=== PATIENT | male | born 1960 | race Caucasian/White ===

== ENCOUNTER 2024-03-12 06:58 | Day surgery (SDC) | payer OTHER, SELFPAY ==
[2024-03-12 07:15] VITALS: BP 142/84; PULSE 59; RESP 18; TEMP 36.7; O2SAT 97; BMI 32.5
[2024-03-12] MEDS: sodium chloride 0.9% 1,000 ML 30 ML IV (07:25)
[2024-03-12 07:48] LABS: Glucose Point of Care 116 mg/dL (70-110)
--- NOTE | 2024-03-12 08:04 | ANES.PREANE2 ---
Pre-Anesthetic Assessment Height/Weight: Height 1.75 m Weight 99.79 kg Temp Pulse Resp BP Pulse Ox O2 Del Method 98.1 F 59 L 18 142/84 97 Room Air 03/12/24 07:15 03/12/24 07:15 03/12/24 07:15 03/12/24 07:15 03/12/24 07:15 03/12/24 07:15 Operation Date: 03/12/24 08:15 Proposed Procedures p Colonoscopy 37126, G0105, Z12.11(Not Applicable) - Jessee Santos, DO Was Beta Shemar taken within 24 hours: N/A Was Clonidine taken within 24 hours: N/A Last intake: Intake Last Liquid Date 03/11/24 Last Liquid Time 12:00 Last Solid Date 03/10/24 Last Solid Time 20:00 Social No alcohol and No tobacco Exam alert, oriented x 3, clear to auscultation bilaterally and regular rate & rhythm Airway Submandibular: within normal limits Cervical ROM: within normal limits Mallampati: Class II History/ROS No significant history except as noted and No significant complaints Pulmonary None reported CV/HEM Hypertension None reported Hepatic None reported GI None reported Metabolic Diabetes Mellitus and Hyperlipidemia [facility] None reported Neuropsych None reported Anesthetic Plan ASA status: 2 Anesthesia: Anesthesia Evaluation and MAC Risk of > 500 ml blood loss (7ml/kg in children): Yes, adequate IV access and fluids planned Medications/Allergies Home Medications Medication Instructions Recorded Confirmed Last Taken Type aspirin 81 mg tablet,delayed 81 mg PO DAILY 10/03/23 03/12/24 03/09/24 History release (Adult Low Dose Aspirin) cholecalciferol (vitamin D3) 125 125 mcg PO DAILY 10/03/23 03/12/24 03/09/24 History mcg (5,000 unit) capsule sildenafil 100 mg tablet (Viagra) 100 mg PO DAILY PRN sexual 10/03/23 03/12/24 Unknown Rx activity #20 tabs tizanidine 4 mg tablet 4 mg PO BID PRN muscle spasticity 02/06/24 03/12/24 Unknown Rx #45 tabs atorvastatin 20 mg tablet 20 mg PO DAILY #90 tabs 02/21/24 03/12/24 03/09/24 Rx liraglutide 0.6 mg/0.1 mL (18 mg/3 See Rx Instructions SUBCUT 02/21/24 03/12/24 Unknown Rx mL) subcutaneous pen injector .COMPLEX #6 mL (Victoza 2-Todd) valsartan 160 mg tablet 160 mg PO BID #60 tabs 02/21/24 03/12/24 03/11/24 Rx gabapentin 100 mg capsule 200 mg PO BEDTIME PRN Pain 03/10/24 03/12/24 Unknown History Allergies Allergy/AdvReac Type Severity Reaction Status Date / Time No Known Allergies Allergy Verified 03/10/24 10:38 [facility] Anesthesia Medical History Vitamin D deficiency Erectile dysfunction Hyperlipidemia Hypertension Social History Smoking and tobacco/nicotine status: former use of tobacco/nicotine Alcohol intake: never Substance/Drug Use: current Data Anesthesia Cardiac Studies: No Data to Display
--- NOTE | 2024-03-12 08:35 | PM.HP ---
Providers/Chief Complaint Primary Care Provider: Daphney Huynh APN Chief Complaint: Z12.11 History of Present Illness Aminta Hernandez is a 63 year old male Review of Systems General: Reports: 10 or more systems reviewed and unremarkable except in HPI and below Medications/Allergies Home Medications Medication Instructions Recorded Confirmed Last Taken Type aspirin 81 mg tablet,delayed 81 mg PO DAILY 10/03/23 03/12/24 03/09/24 History release (Adult Low Dose Aspirin) cholecalciferol (vitamin D3) 125 125 mcg PO DAILY 10/03/23 03/12/24 03/09/24 History mcg (5,000 unit) capsule sildenafil 100 mg tablet (Viagra) 100 mg PO DAILY PRN sexual 10/03/23 03/12/24 Unknown Rx activity #20 tabs tizanidine 4 mg tablet 4 mg PO BID PRN muscle spasticity 02/06/24 03/12/24 Unknown Rx #45 tabs atorvastatin 20 mg tablet 20 mg PO DAILY #90 tabs 02/21/24 03/12/24 03/09/24 Rx liraglutide 0.6 mg/0.1 mL (18 mg/3 See Rx Instructions SUBCUT 02/21/24 03/12/24 Unknown Rx mL) subcutaneous pen injector .COMPLEX #6 mL (Victoza 2-Todd) valsartan 160 mg tablet 160 mg PO BID #60 tabs 02/21/24 03/12/24 03/11/24 Rx gabapentin 100 mg capsule 200 mg PO BEDTIME PRN Pain 03/10/24 03/12/24 Unknown History Allergies Allergy/AdvReac Type Severity Reaction Status Date / Time No Known Allergies Allergy Verified 03/10/24 10:38 PFSH Acute PFSH: Medical History Vitamin D deficiency Erectile dysfunction Hyperlipidemia Hypertension Social History Smoking and tobacco/nicotine status: former use of tobacco/nicotine Alcohol intake: never Substance/Drug Use: current Vitals/I&O/Wt Last Vital Signs Temp 98.1 F 03/12/24 07:15 Pulse 59 L 03/12/24 07:15 Resp 18 03/12/24 07:15 BP 142/84 03/12/24 07:15 Pulse Ox 97 03/12/24 07:15 O2 Del Method Room Air 03/12/24 07:15 Weight last 48 hrs Weight 220 lb A&P Assessment and plan (1) History of colon polyps: Plan Screening colonoscopy Attestations Medical Necessity Statement*: Home Coding Level of Care Code Acute Code for Chg Fwd Diagnoses History of colon polyps Z86.010
[2024-03-12 08:53] VITALS: BP 89/59; PULSE 74; RESP 14; TEMP 36.5; O2SAT 92
[2024-03-12 09:01] VITALS: BP 87/51; PULSE 72; RESP 14; O2SAT 92
[2024-03-12 09:20] VITALS: BP 116/70; PULSE 71; RESP 18; O2SAT 95
--- NOTE | 2024-03-12 09:30 | ANE.PACU2 ---
Inpatient post-anesthesia follow up: Airway intact: Yes Vital signs: Temperature 97.7 F Pulse Rate 71 Respiratory Rate 18 Blood Pressure 116/70 Pulse Oximetry 95 Oxygen Delivery Me thod Room Air Oxygen Flow Rate Fraction of Inspir ed Oxygen Hydration adequate: Yes Nausea and vomiting: No Pain level: 1 Mental status: Baseline
== END 2024-03-12 09:34 | disposition home or self-care (01) ==
PROVIDERS: PCP Nurse Practitioner; Visit Provider Surgery
PROC: 0DJD8ZZ Inspection of Lower Intestinal Tract, Via Natural or Artificial Opening Endoscopic (ICD-10-PCS; CPT 45378; principal; 2024-03-12 08:15)
DX: Z12.11 Encounter for screening for malignant neoplasm of colon (principal); Z86.010 Personal history of colon polyps; D12.3 Benign neoplasm of transverse colon; K64.8 Other hemorrhoids; Z79.82 Long term (current) use of aspirin; E78.5 Hyperlipidemia, unspecified; I10 Essential (primary) hypertension; Z87.891 Personal history of nicotine dependence; E11.9 Type 2 diabetes mellitus without complications
CPT/HCPCS: 36416; 45385; 82962; 88305; J2704; J3490; J7030

== ENCOUNTER → 2024-04-16 10:27 | Outpatient (BNVA) | payer OTHER, SELFPAY | PROVIDERS: PCP Nurse Practitioner; Referring Provider Nurse Practitioner; Visit Provider Specialist | DX: G56.01 Carpal tunnel syndrome, right upper limb (principal) | CPT/HCPCS: 36415; 73130; 80053; 85025 ==

== ENCOUNTER → 2024-04-18 11:11 | Outpatient (BNVA) | payer OTHER, SELFPAY | PROVIDERS: PCP Nurse Practitioner; Visit Provider Family Medicine | DX: Z01.818 Encounter for other preprocedural examination (principal) | CPT/HCPCS: 93005 ==

== ENCOUNTER 2024-04-22 08:36 | Day surgery (SDC) | payer OTHER, SELFPAY ==
[2024-04-22] VITALS (8 sets, daily range): BP systolic 146–157; BP diastolic 71–81; PULSE 56–87; RESP 15–18; TEMP 36.3–36.4; O2SAT 96–99; BMI 30.2
[2024-04-22] MEDS: acetaminophen 1,000 MG/100 ML PIGGYBACK 400 MG IV (09:13)
[2024-04-22 09:15] LABS: Glucose Point of Care 99 mg/dL (70-110)
[2024-04-22] MEDS: gabapentin 300 mg Capsule PO (09:18)
[2024-04-22] MEDS: CELEcoxib 200 mg Capsule 400 MG PO (09:18)
[2024-04-22] MEDS: sodium chloride 0.9% 1,000 ML 30 ML IV (09:18)
--- NOTE | 2024-04-22 09:20 | ANES.PREANE2 ---
Pre-Anesthetic Assessment Height/Weight: Height 1.75 m Temp Pulse Resp BP Pulse Ox O2 Del Method 97.4 F L 56 L 18 146/77 98 Room Air 04/22/24 08:50 04/22/24 08:50 04/22/24 08:50 04/22/24 08:50 04/22/24 08:50 04/22/24 09:00 Operation Date: 04/22/24 10:35 Proposed Procedures p Carpal Tunnel Release(Right) - Natali Vargas MD Familial anesthetic complications: Drowsy til 8 pm after his colonoscopy here, received propofol, lidocaine and glyco only per review of anesthesia record Was Beta Shemar taken within 24 hours: N/A Was Clonidine taken within 24 hours: N/A Last intake: Intake Last Liquid Date 04/21/24 Last Liquid Time 22:00 Last Solid Date 04/21/24 Last Solid Time 19:00 Social No alcohol and No tobacco Exam alert, oriented x 3, clear to auscultation bilaterally and regular rate & rhythm Airway Mallampati: Class I Dentition: other (missing) CV/HEM Hypertension Metabolic Diabetes Mellitus and Hyperlipidemia Anesthetic Plan ASA status: 3 Anesthesia: General Risk of > 500 ml blood loss (7ml/kg in children): No Medications/Allergies Home Medications Medication Instructions Recorded Confirmed Last Taken Type aspirin 81 mg tablet,delayed 81 mg PO DAILY 10/03/23 04/21/24 04/18/24 History release (Adult Low Dose Aspirin) cholecalciferol (vitamin D3) 125 125 mcg PO DAILY 10/03/23 04/21/24 04/18/24 History mcg (5,000 unit) capsule sildenafil 100 mg tablet (Viagra) 100 mg PO DAILY PRN sexual 10/03/23 04/21/24 Unknown Rx activity #20 tabs tizanidine 4 mg tablet 4 mg PO BID PRN muscle spasticity 02/06/24 04/21/24 Unknown Rx #45 tabs atorvastatin 20 mg tablet 20 mg PO DAILY #90 tabs 02/21/24 04/21/24 04/20/24 Rx gabapentin 100 mg capsule 200 mg PO BEDTIME PRN Pain 03/10/24 04/21/24 Unknown History liraglutide 0.6 mg/0.1 mL (18 mg/3 1.2 mg (0.2 mL) SUBCUT DAILY #6 mL 07/04/21/24 04/15/24 Rx mL) subcutaneous pen injector (Victoza 2-Todd) valsartan 80 mg tablet 80 mg PO BID 04/21/24 04/21/24 04/21/24 History Allergies Allergy/AdvReac Type Severity Reaction Status Date / Time No Known Allergies Allergy Verified 04/18/24 11:21 [facility] Anesthesia Medical History History of colon polyps Vitamin D deficiency Erectile dysfunction Hyperlipidemia Hypertension Social History Smoking and tobacco/nicotine status: never used tobacco/nicotine Alcohol intake: never Substance/Drug Use: current Data Anesthesia Cardiac Studies: No Data to Display
--- NOTE | 2024-04-22 09:44 | W.PM.OPSUD ---
Surgery/Procedure H&P Update DATE OF PROCEDURE: April 22, 2024 DATE H&P PERFORMED: 04/18/24 H&P UPDATE INFORMATION: I have reviewed H&P completed within last 30 days, I have examined patient prior to procedure, No changes to prior documentation and H&P is in [facility] on date indicated PLANNED PROCEDURE: Operation Date: 04/22/24 10:35 Proposed Procedures p Carpal Tunnel Release(Right) - Natali Vargas MD Related Problem List Diagnoses (1) Carpal tunnel syndrome on right:
[2024-04-22] MEDS: ceFAZolin 2,000 mg SDV 2000 MG IVP (09:48)
[2024-04-22] MEDS: BUPivacaine 0.5% INJ 30 mL XX (10:13)
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
--- NOTE | 2024-04-22 11:58 | ANE.PACU2 ---
Inpatient post-anesthesia follow up: Airway intact: Yes Vital signs: Temperature 97.5 F Pulse Rate 59 Respiratory Rate 18 Blood Pressure 153/81 Pulse Oximetry 96 Oxygen Delivery Me thod Room Air Oxygen Flow Rate Fraction of Inspir ed Oxygen Hydration adequate: Yes Nausea and vomiting: No Pain level: 1 Mental status: Baseline
== END 2024-04-24 11:58 | disposition home or self-care (01) ==
PROVIDERS: PCP Nurse Practitioner; Visit Provider Specialist
PROC: (CPT 64721; principal; 2024-04-22 10:25)
DX: G56.01 Carpal tunnel syndrome, right upper limb (principal); I10 Essential (primary) hypertension; E11.9 Type 2 diabetes mellitus without complications; E78.5 Hyperlipidemia, unspecified; Z79.82 Long term (current) use of aspirin
CPT/HCPCS: 64721; 36416; 82962; J0131; J0690; J1100; J2405; J2704; J3010; J3490; J7030

== ENCOUNTER → 2024-05-05 11:42 | Outpatient (BNVA) | payer OTHER, SELFPAY | PROVIDERS: PCP Nurse Practitioner; Visit Provider Nurse Practitioner | DX: Z12.5 Encounter for screening for malignant neoplasm of prostate (principal); I10 Essential (primary) hypertension; E78.5 Hyperlipidemia, unspecified; E55.9 Vitamin D deficiency, unspecified | CPT/HCPCS: 80061; 82306; G0103 ==

== ENCOUNTER 2024-06-19 10:22 | Outpatient (RCR) | payer OTHER, SELFPAY | END 2024-06-26 23:59 | disposition home or self-care (01) | LOC: SOT 10:22 | PROVIDERS: PCP Nurse Practitioner; Visit Provider Nurse Practitioner | DX: G56.03 Carpal tunnel syndrome, bilateral upper limbs (principal); Z98.890 Other specified postprocedural states | CPT/HCPCS: 97022; 97110; 97140; 97165 ==

== ENCOUNTER 2024-06-27 06:00 | Outpatient (RCR) | payer OTHER, SELFPAY | END 2024-07-26 23:59 | disposition home or self-care (01) | LOC: SOT 06:00 | PROVIDERS: PCP Nurse Practitioner; Visit Provider Nurse Practitioner | DX: G56.03 Carpal tunnel syndrome, bilateral upper limbs (principal); Z98.890 Other specified postprocedural states | CPT/HCPCS: 97022; 97110; 97140 ==

== ENCOUNTER → 2024-09-10 15:37 | Outpatient (BNVA) | payer OTHER, SELFPAY | PROVIDERS: PCP Nurse Practitioner; Visit Provider Nurse Practitioner | DX: M48.07 Spinal stenosis, lumbosacral region (principal); M47.896 Other spondylosis, lumbar region; M47.897 Other spondylosis, lumbosacral region | CPT/HCPCS: 72100 ==

== ENCOUNTER → 2025-07-17 09:02 | Outpatient (BNVA) | payer MEDICARE, OTHER, SELFPAY | PROVIDERS: PCP Nurse Practitioner; Visit Provider Nurse Practitioner | DX: E55.9 Vitamin D deficiency, unspecified (principal); I10 Essential (primary) hypertension; E78.5 Hyperlipidemia, unspecified | CPT/HCPCS: 80053; 80061; 82306; 82607; 83735; 84443; 85025 ==